=== PATIENT | female | born 1955 | race Caucasian/White ===

== ENCOUNTER → 2022-11-04 12:23 | Outpatient (CLI) | payer MEDICARE, SELFPAY ==
--- NOTE | ~2022-11-04 | US_ITS ---
EXAMINATION: US pelvic complete w TV DATE: 11/04/2022 12:59 INDICATION: Right adnexal mass on MRI TECHNIQUE: Multiple transabdominal and endovaginal sonographic images of the pelvis were obtained. COMPARISON: None. FINDINGS: The uterus measures 7.2 x 4.6 x 5.1 cm. The endometrial complex measures 18 m. The right ov trev is not well visualized. There is an 11.4 x 11.9 x 13.6 cm complex cystic and solid right adnexal mass. The left ovary measures 2.4 x 3 x 2 cm. There is normal vascular flow in the left ovary. There is no free fluid in the pelvis. IMPRESSION: 1. Complex cystic and solid mass of the right adnexa measuring up to 13.6 cm. Mass was reportedly see n on MRI which is not available at the time of interpretation. Mass is of unclear origin but could re flect ovarian neoplasm. If so, this is a surgical lesion. Recommend comparison with prior MRI. 2. Endometrial thickening which may be due to hyperplasia, polyp, or malignancy. Endometrial sampling is recommended. Reviewed, dictated and finalized at location B. IMPRESSION: 1. Complex cystic and solid mass of the right adnexa measuring up to 13.6 cm. M ass was reportedly seen on MRI which is not available at the time of interpreta tion. Mass is of unclear origin but could reflect ovarian neoplasm. If so, this is a surgical lesion. Recommend comparison with prior MRI. 2. Endometrial thickening which may be due to hyperplasia, polyp, or malignancy . Endometrial sampling is recommended.
== END ==
PROVIDERS: PCP Student in an Organized Health Care Education/Training Program; Visit Provider Student in an Organized Health Care Education/Training Program
DX: R19.00 Intra-abdominal and pelvic swelling, mass and lump, unspecified site (principal)
CPT/HCPCS: 76830; 76856

== ENCOUNTER 2022-11-04 12:47 | Outpatient (CLI) | payer MEDICARE, SELFPAY ==
[2022-11-10 04:51] LABS: CA-125 253 U/mL (<35)
== END 2022-11-04 12:48 | disposition home or self-care (01) ==
PROVIDERS: PCP Student in an Organized Health Care Education/Training Program; Visit Provider Student in an Organized Health Care Education/Training Program
DX: R19.09 Other intra-abdominal and pelvic swelling, mass and lump (principal)
CPT/HCPCS: 36415; 86304

== ENCOUNTER 2022-12-25 10:58 | Emergency (ER) | payer OTHER, MEDICARE, SELFPAY ==
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
[2022-12-25 10:59] VITALS: BP 137/51; PULSE 87; RESP 18; TEMP 37.3; O2SAT 100
--- NOTE | 2022-12-25 11:14 | ECG_ITS ---
Measurements Intervals [place] Rate: 76 P: 47 HI: 159 QRS: -8 QRSD: 89 T: 51 QT: 362 QTc: 408 Interpretive Statements SINUS RHYTHM NO PREVIOUS ECG AVAILABLE FOR COMPARISON Electronically Signed On 12-25-2022 13:00:03 CDT by Latrice Portillo M.D.
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
[2022-12-25 11:30] VITALS: BP 131/64; PULSE 82; RESP 17; O2SAT 97
[2022-12-25] MEDS: ONDANSETRON INJ 4 MG/2 ML VIAL IV PUSH (11:39)
[2022-12-25] MEDS: MORPHINE SULFATE (*CRX) 2 MG/ML INJ IV PUSH (11:39)
[2022-12-25 11:44] LABS: Basophils Absolute Auto 0.1 K/mm3 (0.0-0.1); Basophils Percent Auto 0.8 % (0.2-1.2); Eosinophils Absolute Auto 0.5 K/mm3 (0-0.3); Hematocrit 41.7 % (37.0-47.0); Hemoglobin 13.5 g/dL (12.0-15.0); Immature Granulocyte Absolute 0.04 K/mm3 (0.00-0.031); Immature Granulocyte Percent A 0.5 % (0-0.5); Lymphocytes Absolute Auto 2.13 K/mm3 (0.9-3.2); Mean Corpuscular HGB Conc 32.4 g/dl (32-36); Mean Corpuscular Hemoglobin 29.3 pg (26-34); Mean Corpuscular Volume 90.7 fl (80-100); Mean Platelet Volume 9.4 fl (7.4-10.4); Monocytes Absolute Auto 0.5 K/mm3 (0.1-0.6); Neutrophils Absolute Auto 4.7 K/mm3 (1.3-6.7); Neutrophils Percent Auto 59.7 % (45.5-73.1); Platelet Count Result 309 k/mm3 (150-375); Red Cell Distribution Width 13.2 % (11.5-14.5); White Blood Count 7.9 K/mm3 (4.5-10.0)
[2022-12-25 11:55] LABS: INR 0.9; Partial Thromboplastin Time 28.9 SECONDS (22.3-36.8); Prothrombin Time 12.9 Seconds (11.1-14.7)
[2022-12-25 11:58] LABS: Alanine Aminotransferase 21 U/L (6-35); Albumin Level 4.1 g/dL (3.5-5.1); Alkaline Phosphatase 63 U/L (38-126); Anion Gap 6 mmol/L (8-16); Aspartate Amino Transferase 28 U/L (14-36); Bilirubin,Total 0.5 mg/dL (0.2-1.3); Blood Urea Nitrogen 22 mg/dL (7-17); Calcium 9.4 mg/dL (8.4-10.2); Carbon Dioxide 25 mmol/L (22-30); Chloride 106 mmol/L (98-107); Estimated CRCL calculation 55 ml/min; Estimated Glomerular Filt Rate > 60; Glucose 91 mg/dL (65-110); Potassium 3.9 mmol/L (3.4-5.0); Sodium 137 mmol/L (137-145)
[2022-12-25 12:08] LABS: Troponin I < 0.012 ng/mL (0.000-0.034)
--- NOTE | 2022-12-25 12:11 | PC.NURSE ---
Pt to CT scan via stretcher at this time, family at bedside.
[2022-12-25] MEDS: SODIUM CHLORIDE 0.9% IV 500 ML 999 ML IV CONT (12:47)
[2022-12-25 12:48] VITALS: BP 136/59; PULSE 92; RESP 22; O2SAT 99
[2022-12-25 15:34] VITALS: BP 125/67; PULSE 81; RESP 17; O2SAT 96
[2022-12-25 15:34] LABS: Troponin I < 0.012 ng/mL (0.000-0.034)
== END 2022-12-25 16:26 | disposition home or self-care (01) ==
PROVIDERS: Emergency Provider Physician Assistant; PCP Family Medicine
DX: S20.211A Contusion of right front wall of thorax, initial encounter (principal); S16.1XXA Strain of muscle, fascia and tendon at neck level, initial encounter; K43.9 Ventral hernia without obstruction or gangrene; E78.5 Hyperlipidemia, unspecified; Z87.891 Personal history of nicotine dependence; V43.62XA Car passenger injured in collision with other type car in traffic accident, initial encounter; Y92.488 Other paved roadways as the place of occurrence of the external cause
CPT/HCPCS: 36415; 70450; 71260; 72125; 72129; 72132; 74177; 80053; 84484; 85025; 85610; 85730; 93005; 96361; 96374; 96375; 99284; J2270; J2405; J7040; Q9967

== ENCOUNTER 2024-08-16 14:19 | Outpatient (CLI) | payer MEDICARE, SELFPAY ==
--- NOTE | ~2024-08-16 | XR_ITS ---
XR wrist LT min 3V Ordering provider: Gricel Wood, [employer] History: . LEFT WRIST PAIN . Comparison: None. FINDINGS: BONES: No acute fracture or dislocation. No definite scaphoid fracture. Postoperative changes in the distal radius. JOINT SPACES: Narrowing of the radiocarpal joint. Osteoarthritic changes of the first carpometacarpal joint and scaphotrapezial joint. SOFT TISSUES: Normal. IMPRESSION: No acute osseous abnormality left wrist. Postoperative changes in the distal radius. Osteoarthritic changes of the radiocarpal and first carpometacarpal joints. Reviewed, dictated and finalized at location A.
== END 2024-08-16 14:20 | disposition home or self-care (01) ==
DX: M18.12 Unilateral primary osteoarthritis of first carpometacarpal joint, left hand (principal); M19.032 Primary osteoarthritis, left wrist
CPT/HCPCS: 73110